=== PATIENT | male | born 1970 | race American Indian/Alaskan Native ===

== ENCOUNTER 2017-07-20 10:56 | Emergency (ER) | payer BC, OTHER ==
--- NOTE | 2017-07-20 10:56 | EDM.PDOC ---
ED HPI GENERAL MEDICAL PROBLEM - General Chief Complaint: Chest Pain Stated Complaint: CHEST PAIN. IN BY SL AMB Time Seen by Provider: 07/20/17 10:55 Source of Information: Reports: Patient, EMS, Old Records, Provider (Tin DUARTE [facility]), RN, RN Notes Reviewed History Limitations: Reports: No Limitations - History of Present Illness INITIAL COMMENTS - FREE TEXT/NARRATIVE: Arrives from [facility] by ambulance with c/o onset of chest pain and pressure at 2230HRS last night. Pt also reports he had epigastric pain. Pt took Maalox without relief. Pt presented to clinic today and was evaluated by Tin DUARTE. Pt received a GI cocktail without change in his chest pain, but did have relief of the epigastric pain. He rated his pain as 5/10, and was given Nitroglycerin 0.4mg SL x1 with relief of pain to a 3/10. He was then given a second dose and the pain completely resolved. On arrival to the ER the chest pain had returned. Admits to mild shortness of breath. Denies nausea, vomiting, diarrhea, constipation, cough, wheezing, edema, orthopnea, palpitations, or rapid heart rate. Onset Date: 07/19/17 Onset Time: 22:30 Duration: Constant, Waxing/Waning Location: Reports: Chest Quality: Reports: Ache, Pressure Severity: Moderate Improves with: Reports: Medication (Nitroglycerin) Worsens with: Reports: None Associated Symptoms: Reports: No Other Symptoms Treatments [employer]: Reports: Aspirin, IV/IO, Nitroglycerin Right Chest Pain Score (Numeric/FACES): 5 - Related Data Allergies Allergy/AdvReac Type Severity Reaction Status Date / Time No Known Allergies Allergy Verified 07/20/17 11:29 Home Meds: Home Meds . [No Known Home Meds] 07/20/17 [History] Past Medical History Cardiovascular History: Reports: High Cholesterol Psychiatric History: Reports: Anxiety, Panic Attack Endocrine/Metabolic History: Reports: Diabetes, Type II, Obesity/BMI 30+ Social & Family History - Family History Family Medical History: Unobtainable Cardiac: Reports: CAD (father), Heart Failure (CHF father), High Cholesterol, Hypertension, [place] (father) Psychiatric: Reports: Anxiety Endocrine/Metabolic: Reports: Diabetes, type II, Obesity/MBI 30+ - Living Situation & Occupation Living situation: Reports: with Family Occupation: Employed ED ROS GENERAL - Review of Systems Review Of Systems: ROS reveals no pertinent complaints other than HPI. ED EXAM, GENERAL - Physical Exam Exam: See Below Exam Limited By: No Limitations General Appearance: Alert, WD/WN, No Apparent Distress, Anxious, Obese Eye Exam: Bilateral Eye: Normal Inspection Ears: Hearing Grossly Normal Nose: Normal Inspection, Normal Mucosa, No Blood Throat/Mouth: Normal Oropharynx, Normal Voice, No Airway Compromise, Other ( extensive chronic dental decay) Head: Atraumatic, Normocephalic Neck: Normal Inspection, Supple, Non-Tender, Full Range of Motion. No: Lymphadenopathy (L), Lymphadenopathy (R) Respiratory/Chest: No Respiratory Distress, Lungs Clear, Normal Breath Sounds, No Accessory Muscle Use, Chest Non-Tender Cardiovascular: Normal Peripheral Pulses, Regular Rate, Rhythm, No Edema, No Gallop, No JVD, No Murmur, No Rub GI/Abdominal: Normal Bowel Sounds, Soft, No Distention, No Abnormal Bruit, Tender (mild-mod. epigastric pain to palpation). No: Guarding, Rigid, Rebound (Male) Exam: Deferred Rectal (Males) Exam: Deferred Back Exam: Normal Inspection, Full Range of Motion, NT Extremities: Normal Inspection, Normal Range of Motion, Non-Tender, Normal Capillary Refill, No Pedal Edema Neurological: Alert, Oriented, CN II-XII Intact, Normal Cognition, Normal Gait, No Motor/Sensory Deficits Psychiatric: Anxious Skin Exam: Warm, Dry, Intact, Normal Color, No Rash EKG INTERPRETATION EKG Date: 07/20/17 Time: 11:50 Rhythm: Other (Sinus shyanne) Rate (Beats/Min): 54 [place]: Normal P-Wave: Present QRS: Normal ST-T: Normal QT: Normal Comparison: NA - No Prior EKG EKG Interpretation Comments: No acute ischemic changes. Course - Vital Signs Last Recorded V/S: Last Vital Signs Temp 36.6 C 07/20/17 11:19 Pulse 61 07/20/17 11:19 Resp 18 07/20/17 11:19 BP 137/81 07/20/17 11:19 Pulse Ox 95 07/20/17 11:19 - Orders/Labs/Meds Orders: Active Orders 24 hr Category Date Time Status EKG 12 Lead [EKG Documentation Completion] [RC] STAT Care 07/20/17 11:02 Active Peripheral IV Care [RC] . DIRECTED Care 07/20/17 11:03 Active Chest 1V Frontal [CR] Stat Exams 07/20/17 11:02 Taken DRUG SCREEN URINE BIORAD [URCHEM] Stat Lab 07/20/17 11:44 Ordered UA W/MICROSCOPIC [URIN] Stat Lab 07/20/17 11:44 Ordered Omeprazole Med 07/20/17 12:17 Once 20 mg PO ONETIME ONE Sodium Chloride 0.9% [Saline Flush] Med 07/20/17 11:02 Active 10 ml FLUSH ASDIRECTED PRN Sucralfate [Carafate] Med 07/20/17 12:17 Once 1 gm PO ONETIME ONE Peripheral IV Insertion Adult [OM.PC] Stat Oth 07/20/17 11:02 Ordered Medication Orders Omeprazole (Omeprazole) 20 mg PO ONETIME ONE Stop: 07/20/17 12:18 Sodium Chloride (Saline Flush) 10 ml FLUSH ASDIRECTED PRN PRN Reason: Keep Vein Open Sucralfate (Carafate) 1 gm PO ONETIME ONE Stop: 07/20/17 12:18 Labs: Laboratory Tests 07/20/17 07/20/17 07/20/17 Range/Units 11:11 11:11 11:11 WBC 7.4 (5.0-10.0) 10^3/uL RBC 5.23 (4.6-6.2) 10^6/uL Hgb 15.5 (14.0-18.0) g/dL Hct 45.6 (40.0-54.0) % MCV 87.2 (80-100) fL MCH 29.6 (27.0-34.0) pg MCHC 34.0 (33.0-35.0) g/dL Plt Count 234 (150-450) 10^3/uL Neut % (Auto) 55.9 (42.2-75.2) % Lymph % (Auto) 32.0 (20.5-50.1) % Placer % (Auto) 8.0 (2-8) % Eos % (Auto) 3.6 H (1.0-3.0) % Baso % (Auto) 0.5 (0.0-1.0) % PT 9.2 (9.0-12.0) SEC INR 0.9 (0.9-1.2) APTT 27.0 (22.0-34.0) SEC D-Dimer, Quantitative < 100 (0-400) ng/mL Sodium 137 (135-145) mmol/L Potassium 3.7 (3.6-5.0) mmol/L Chloride 106 (101-111) mmol/L Carbon Dioxide 24.0 (21.0-31.0) mmol/L Anion Gap 10.7 BUN 13 (7-18) mg/dL Creatinine 0.9 (0.6-1.3) mg/dL Est Cr Clr Drug Dosing 110.39 mL/min Estimated GFR (MDRD) > 60 BUN/Creatinine Ratio 14.44 Glucose 132 H (74-105) mg/dL Calcium 9.1 (8.4-10.2) mg/dl Total Bilirubin 0.9 (0.2-1.0) mg/dL AST 18 (10-42) IU/L ALT 17 (10-60) IU/L Alkaline Phosphatase 86 (42-121) IU/L Troponin I < 0.02 (0.00-0.02) ng/ml Total Protein 7.3 (6.7-8.2) g/dl Albumin 3.6 (3.2-5.5) g/dl Globulin 3.7 Albumin/Globulin Ratio 0.97 Amylase 56 (28-100) U/L Lipase 28 (22-51) U/L Urine Color (YELLOW) Urine Appearance (CLEAR) Urine pH (5.0-9.0) Ur Specific [place] (1.005-1.030) Urine Protein (NEGATIVE) Urine Glucose (UA) (NEGATIVE) Urine Ketones (NEGATIVE) Urine Occult Blood (NEGATIVE) Urine Nitrite (NEGATIVE) Urine Bilirubin (NEGATIVE) Urine Urobilinogen (0.2-1.0) mg/dL Ur Leukocyte Esterase (NEGATIVE) Urine RBC /HPF Urine WBC (0-5/HPF) /HPF Ur Epithelial Cells /HPF Urine Bacteria (0-FEW/HPF) /HPF Urine Mucus /LPF Urine Opiates Screen (NEGATIVE) Ur Oxycodone Screen (NEGATIVE) Urine Methadone Screen (NEGATIVE) Ur Barbiturates Screen (NEGATIVE) U Tricyclic Antidepress (NEGATIVE) Ur Phencyclidine Scrn (NEGATIVE) Ur Amphetamine Screen (NEGATIVE) U Methamphetamines Scrn (NEGATIVE) Urine MDMA Screen (NEGATIVE) U Benzodiazepines Scrn (NEGATIVE) Urine Cocaine Screen (NEGATIVE) U Marijuana (THC) Screen (NEGATIVE) Ethyl Alcohol < 5 mg/dL 07/20/17 07/20/17 Range/Units 11:44 11:44 WBC (5.0-10.0) 10^3/uL RBC (4.6-6.2) 10^6/uL Hgb (14.0-18.0) g/dL Hct (40.0-54.0) % MCV (80-100) fL MCH (27.0-34.0) pg MCHC (33.0-35.0) g/dL Plt Count (150-450) 10^3/uL Neut % (Auto) (42.2-75.2) % Lymph % (Auto) (20.5-50.1) % Placer % (Auto) (2-8) % Eos % (Auto) (1.0-3.0) % Baso % (Auto) (0.0-1.0) % PT (9.0-12.0) SEC INR (0.9-1.2) APTT (22.0-34.0) SEC D-Dimer, Quantitative (0-400) ng/mL Sodium (135-145) mmol/L Potassium (3.6-5.0) mmol/L Chloride (101-111) mmol/L Carbon Dioxide (21.0-31.0) mmol/L Anion Gap BUN (7-18) mg/dL Creatinine (0.6-1.3) mg/dL Est Cr Clr Drug Dosing mL/min Estimated GFR (MDRD) BUN/Creatinine Ratio Glucose (74-105) mg/dL Calcium (8.4-10.2) mg/dl Total Bilirubin (0.2-1.0) mg/dL AST (10-42) IU/L ALT (10-60) IU/L Alkaline Phosphatase (42-121) IU/L Troponin I (0.00-0.02) ng/ml Total Protein (6.7-8.2) g/dl Albumin (3.2-5.5) g/dl Globulin Albumin/Globulin Ratio Amylase (28-100) U/L Lipase (22-51) U/L Urine Color Yellow (YELLOW) Urine Appearance Clear (CLEAR) Urine pH 6.5 (5.0-9.0) Ur Specific [place] >= 1.030 (1.005-1.030) Urine Protein Negative (NEGATIVE) Urine Glucose (UA) Negative (NEGATIVE) Urine Ketones Negative (NEGATIVE) Urine Occult Blood Negative (NEGATIVE) Urine Nitrite Negative (NEGATIVE) Urine Bilirubin Negative (NEGATIVE) Urine Urobilinogen 1.0 (0.2-1.0) mg/dL Ur Leukocyte Esterase Negative (NEGATIVE) Urine RBC 0-5 /HPF Urine WBC 0-5 (0-5/HPF) /HPF Ur Epithelial Cells Few /HPF Urine Bacteria Rare (0-FEW/HPF) /HPF Urine Mucus Moderate H /LPF Urine Opiates Screen Negative (NEGATIVE) Ur Oxycodone Screen Negative (NEGATIVE) Urine Methadone Screen Negative (NEGATIVE) Ur Barbiturates Screen Positive H (NEGATIVE) U Tricyclic Antidepress Negative (NEGATIVE) Ur Phencyclidine Scrn Negative (NEGATIVE) Ur Amphetamine Screen Negative (NEGATIVE) U Methamphetamines Scrn Negative (NEGATIVE) Urine MDMA Screen Negative (NEGATIVE) U Benzodiazepines Scrn Negative (NEGATIVE) Urine Cocaine Screen Negative (NEGATIVE) U Marijuana (THC) Screen Negative (NEGATIVE) Ethyl Alcohol mg/dL *Barbiturate positive: GI cocktail (phenobarb-donnatol) prior to arrival at [facility]. Meds: Medications Generic Name Dose Route Start Last Admin Trade Name Freq PRN Reason Stop Dose Admin Omeprazole 20 mg 07/20/17 12:17 Omeprazole PO 07/20/17 12:18 ONETIME ONE Sodium Chloride 10 ml 07/20/17 11:02 Saline Flush FLUSH ASDIRECTED PRN Keep Vein Open Sucralfate 1 gm 07/20/17 12:17 Carafate PO 07/20/17 12:18 ONETIME ONE - Radiology Interpretation Free Text/Narrative:: AP CXR: no acute process; see Rad. report. Departure - Departure Time of Disposition: 12:21 Disposition: Home, Self-Care 01 Condition: Good Clinical Impression: Atypical chest pain, Epigastric abdominal pain Instructions: Nonspecific Chest Pain, Gastritis, Adult, [id number] Forms: ED Department Discharge Additional Instructions: Rx: Carafate 1g Rx: Omeprazole 20mg Avoid spicy foods, greasy/fried foods, and alcohol. Follow up in clinic for recheck and consideration of referral for upper endoscopy, and cardiac stress test. - My Orders Last 24 Hours: My Active Orders 07/20/17 11:02 EKG 12 Lead [EKG Documentation Completion] [RC] STAT Chest 1V Frontal [CR] Stat Sodium Chloride 0.9% [Saline Flush] 10 ml FLUSH ASDIRECTED PRN Peripheral IV Insertion Adult [OM.PC] Stat 07/20/17 11:03 Peripheral IV Care [RC] . DIRECTED 07/20/17 11:44 DRUG SCREEN URINE BIORAD [URCHEM] Stat UA W/MICROSCOPIC [URIN] Stat 07/20/17 12:17 Omeprazole 20 mg PO ONETIME ONE Sucralfate [Carafate] 1 gm PO ONETIME ONE - Assessment/Plan Last 24 Hours: My Active Orders 07/20/17 11:02 EKG 12 Lead [EKG Documentation Completion] [RC] STAT Chest 1V Frontal [CR] Stat Sodium Chloride 0.9% [Saline Flush] 10 ml FLUSH ASDIRECTED PRN Peripheral IV Insertion Adult [OM.PC] Stat 07/20/17 11:03 Peripheral IV Care [RC] . DIRECTED 07/20/17 11:44 DRUG SCREEN URINE BIORAD [URCHEM] Stat UA W/MICROSCOPIC [URIN] Stat 07/20/17 12:17 Omeprazole 20 mg PO ONETIME ONE Sucralfate [Carafate] 1 gm PO ONETIME ONE
[2017-07-20] MEDS ORDERED: Sodium Chloride 0.9% 10 ML Syringe FLUSH PRN (11:02)
[2017-07-20 11:39] LABS: CHLORIDE,CL 106 mmol/L (101-111); SODIUM,NA 137 mmol/L (135-145)
[2017-07-20] MEDS ORDERED: Omeprazole 20 MG Cap.CR PO ONE (12:17)
[2017-07-20] MEDS ORDERED: Sucralfate 1 GM Tab PO ONE (12:17)
--- NOTE | 2017-07-21 14:13 | EKG ---
07/20/2017- MEKHI ARRINGTON - EKG per my reading, shows sinus bradycardia at the rate of 54. MODL /[id number]
== END 2017-07-20 12:45 | disposition home or self-care (01) ==
LOC: DL.ED 10:56
DX: R07.89 Other chest pain (principal); R10.13 Epigastric pain
CPT/HCPCS: 36415; 71045; 80053; 80305; 81001; 82150; 83690; 84484; 85025; 85379; 85610; 85730; 93005; 99285; A9270; G0480